=== PATIENT | female | born 1975 | race African-American/Black ===

== ENCOUNTER 2018-02-18 23:04 | Emergency (ER) | payer SELFPAY ==
[~2018-02-18] VITALS: Ht 165.1 cm; Wt 118.1 kg
[2018-02-18] MEDS ORDERED: ONDANSETRON HCL 4MG/2ML VIAL IV STA (23:26)
[2018-02-18] MEDS ORDERED: SODIUM CHLORIDE 0.9% 1,000 ML IV ONE (23:26)
[2018-02-18] MEDS ORDERED: LORAZEPAM 2MG/ML CPJ IV ONE (23:30)
[2018-02-18 23:44] LABS: BASOPHILS % 1.3 % (0.0-2.0); EOSINOPHILS % 1.5 % (0.0-5.0); HEMATOCRIT. 37.5 % (36.0-48.0); HEMOGLOBIN. 12.1 g/dL (12.0-16.0); LYMPHOCYTES % 43.9 % (20.0-50.0); MEAN CORPUSCULAR HEMOGLOBIN 25.9 pg (28.0-32.0); MEAN PLATELET VOLUME 8.6 fl (7.4-10.4); MONOCYTES % 7.1 % (2.0-8.0); NEUTROPHILS % 46.2 % (40.0-76.0); PLATELET 214 x1000/uL (130-400); RED BLOOD CELL COUNT 4.68 mill/uL (4.2-5.4); RED CELL DISTRIBUTION WIDTH 17.8 % (11.6-14.6)
[2018-02-18 23:50] LABS: CHLORIDE 92 mEq/L (98-107)
[2018-02-18 23:54] LABS: INR 1.1; PROTHROMBIN TIME 11.5 sec (9.4-11.6)
[2018-02-18 23:56] LABS: ETHANOL BLOOD 239 mg/dL
[2018-02-19] LABS: CREATINE KINASE 239 IU/L (26-192)
[2018-02-19] MEDS ORDERED: POTASSIUM CHLORIDE 20MEQ TABLET SR PO ONE (01:00)
[2018-02-19] MEDS ORDERED: SODIUM CHLORIDE 0.9% 1,000 ML IV ONE (01:07)
[2018-02-19] MEDS ORDERED: INSULIN REGULAR (HUMULIN R) 300UNITS/3ML SUBCUT ONE (01:15)
[2018-02-19] MEDS: POTASSIUM CHLORIDE 20MEQ TABLET SR PO NR ×2 (02:38→03:19)
[2018-02-19 06:32] VITALS: BP 159/99
== END 2018-02-19 06:50 | disposition home or self-care (01) ==
LOC: ER 23:04
DX: R07.2 Precordial pain (principal); F41.9 Anxiety disorder, unspecified; I10 Essential (primary) hypertension
CPT/HCPCS: 36415; 71045; 80053; 82550; 82962; 83880; 84443; 84484; 85025; 85610; 93005; 96372; 96374; 96375; 99285; G0482; J1815; J7030; Z7610; J2060; J2405

== ENCOUNTER 2020-12-20 15:51 | Emergency (ER) | payer OTHER ==
[~2020-12-20] VITALS: Ht 170.2 cm; Wt 112.0 kg
[2020-12-20] MEDS ORDERED: ONDANSETRON 4MG ODT PO ONE (16:45)
[2020-12-20] MEDS ORDERED: MECLIZINE 25MG TABLET PO ONE (17:15)
[2020-12-20 17:16] LABS: BASOPHILS % 0.2 % (0.0-2.0); EOSINOPHILS % 0.1 % (0.0-5.0); HEMATOCRIT. 36.4 % (36.0-48.0); HEMOGLOBIN. 12.1 g/dL (12.0-16.0); LYMPHOCYTES % 18.9 % (20.0-50.0); MEAN CORPUSCULAR HEMOGLOBIN 33.9 pg (28.0-32.0); MEAN CORPUSCULAR VOLUME 102.1 fL (81.0-99.0); MEAN PLATELET VOLUME 8.3 fl (7.4-10.4); MONOCYTES % 6.8 % (2.0-8.0); PLATELET 283 x1000/uL (130-400); RED BLOOD CELL COUNT 3.56 mill/uL (4.2-5.4); RED CELL DISTRIBUTION WIDTH 15.7 % (11.6-14.6)
[2020-12-20 17:20] LABS: CHLORIDE 102 mEq/L (98-107)
[2020-12-20 17:23] LABS: PROTHROMBIN TIME 11.2 sec (9.6-11.0)
[2020-12-20 17:25] LABS: ETHANOL BLOOD 72 mg/dL; HCG SCREEN NEGATIVE
[2020-12-20] MEDS ORDERED: SODIUM CHLORIDE 0.9% 1,000 ML IV ONE (18:30)
[2020-12-20 20:25] VITALS: BP 132/88
== END 2020-12-20 21:05 | disposition short-term general hospital (02) ==
LOC: ER 15:51
DX: R55 Syncope and collapse (principal); F41.9 Anxiety disorder, unspecified; G62.9 Polyneuropathy, unspecified; I10 Essential (primary) hypertension; E11.9 Type 2 diabetes mellitus without complications; F10.129 Alcohol abuse with intoxication, unspecified; Y90.3 Blood alcohol level of 60-79 mg/100 ml
CPT/HCPCS: 36415; 70450; 80053; 80320; 83690; 84484; 84703; 85025; 85610; 93005; 96360; 99285; J7030; J8597; Q0162; Z7610; G0480

== ENCOUNTER 2021-11-27 05:15 | Emergency (ER) | payer OTHER ==
[~2021-11-27] VITALS: Ht 165.1 cm; Wt 100.0 kg
[2021-11-27 05:45] LABS: BASOPHILS % 0.2 % (0.0-2.0); EOSINOPHILS % 0.4 % (0.0-5.0); HEMATOCRIT. 23.3 % (36.0-48.0); HEMOGLOBIN. 7.7 g/dL (12.0-16.0); LYMPHOCYTES % 39.8 % (20.0-50.0); MEAN CORPUSCULAR HEMOGLOBIN 30.8 pg (28.0-32.0); MEAN CORPUSCULAR VOLUME 92.6 fL (81.0-99.0); MEAN PLATELET VOLUME 8.4 fl (7.4-10.4); NEUTROPHILS % 53.6 % (40.0-76.0); PLATELET 166 x1000/uL (130-400); RED BLOOD CELL COUNT 2.52 mill/uL (4.2-5.4)
[2021-11-27 05:53] LABS: CHLORIDE 108 mEq/L (98-107)
[2021-11-27 06:01] LABS: B-HCG QUANTITATIVE < 1 mIU/mL (<3)
[2021-11-27 06:09] LABS: HCG SCREEN NEGATIVE
[2021-11-27] MEDS ORDERED: ONDANSETRON HCL 4MG/2ML INJ IV ONE (06:30)
[2021-11-27] MEDS ORDERED: POTASSIUM CHLORIDE 20MEQ TABLET SR PO NR (07:45)
[2021-11-27 12:00] VITALS: BP 145/87
== END 2021-11-27 12:48 | disposition short-term general hospital (02) ==
LOC: ER 05:15
DX: D64.9 Anemia, unspecified (principal); R07.89 Other chest pain; N93.8 Other specified abnormal uterine and vaginal bleeding; E11.9 Type 2 diabetes mellitus without complications; I10 Essential (primary) hypertension; Z20.822 Contact with and (suspected) exposure to COVID-19
CPT/HCPCS: 36415; 71045; 76830; 76856; 80053; 82962; 83880; 84484; 84702; 84703; 85025; 86850; 86900; 86901; 86920; 87426; 93005; 96374; 99291; J2405; P9016

== ENCOUNTER 2022-03-02 00:13 | Emergency (ER) | payer OTHER ==
[~2022-03-02] VITALS: Ht 167.6 cm; Wt 103.0 kg
[2022-03-02 00:33] VITALS: BP 102/67
[2022-03-02 01:18] LABS: BASOPHILS % 0.3 % (0.0-2.0); EOSINOPHILS % 1.2 % (0.0-5.0); HEMATOCRIT. 33.4 % (36.0-48.0); HEMOGLOBIN. 10.5 g/dL (12.0-16.0); LYMPHOCYTES % 37.3 % (20.0-50.0); MEAN CORPUSCULAR HEMOGLOBIN 26.9 pg (28.0-32.0); MEAN CORPUSCULAR VOLUME 85.9 fL (81.0-99.0); MEAN PLATELET VOLUME 7.8 fl (7.4-10.4); MONOCYTES % 9.6 % (2.0-8.0); NEUTROPHILS % 51.6 % (40.0-76.0); PLATELET 212 x1000/uL (130-400); RED BLOOD CELL COUNT 3.89 mill/uL (4.2-5.4); RED CELL DISTRIBUTION WIDTH 20.7 % (11.6-14.6)
[2022-03-02 01:26] LABS: CHLORIDE 112 mEq/L (98-107)
== END 2022-03-02 05:23 | disposition left against medical advice (07) ==
LOC: ER 00:13
DX: R42 Dizziness and giddiness (principal); I10 Essential (primary) hypertension; E11.9 Type 2 diabetes mellitus without complications; Z98.890 Other specified postprocedural states; Z53.21 Procedure and treatment not carried out due to patient leaving prior to being seen by health care provider
CPT/HCPCS: 36415; 71045; 80053; 83880; 84484; 85025; 85379; 93005; 93970; 99285

== ENCOUNTER 2022-10-28 18:26 | Emergency (ER) | payer OTHER ==
[~2022-10-28] VITALS: Ht 170.2 cm; Wt 107.0 kg
[2022-10-28] MEDS ORDERED: MORPHINE SULFATE 4 MG/ML CPJ (NOT FOR IM USE) IV ONE (19:00)
[2022-10-28] MEDS ORDERED: ASPIRIN 325MG TABLET PO ONE (19:00)
[2022-10-28] MEDS ORDERED: ONDANSETRON HCL 4MG/2ML INJ IV ONE (19:15)
[2022-10-28 19:23] LABS: BASOPHILS % 0.4 % (0.0-2.0); EOSINOPHILS % 0.1 % (0.0-5.0); HEMATOCRIT. 38.7 % (36.0-48.0); HEMOGLOBIN. 12.5 g/dL (12.0-16.0); MEAN CORPUSCULAR HEMOGLOBIN 28.9 pg (28.0-32.0); MEAN CORPUSCULAR VOLUME 89.5 fL (81.0-99.0); NEUTROPHILS % 82.5 % (40.0-76.0); PLATELET 136 x1000/uL (130-400); RED BLOOD CELL COUNT 4.32 mill/uL (4.2-5.4); RED CELL DISTRIBUTION WIDTH 19.7 % (11.6-14.6)
[2022-10-28 19:31] LABS: PROTHROMBIN TIME 10.8 sec (9.6-11.0)
[2022-10-28 19:35] LABS: CHLORIDE 106 mEq/L (98-107); HCG SCREEN NEGATIVE
[2022-10-28] MEDS ORDERED: LORAZEPAM 2MG/ML CPJ IV ONE (20:30)
[2022-10-28] MEDS ORDERED: NITROGLYCERIN 0.4MG TABLET SL SL PRN (20:30)
[2022-10-29 01:25] VITALS: BP 148/86
== END 2022-10-29 02:41 | disposition short-term general hospital (02) ==
LOC: ER 18:26 → EDBEDREQ 20:31 → CANBEDREQ 22:21 → ER 10-29 02:41
DX: F10.239 Alcohol dependence with withdrawal, unspecified (principal); Y90.0 Blood alcohol level of less than 20 mg/100 ml; E11.9 Type 2 diabetes mellitus without complications; E78.00 Pure hypercholesterolemia, unspecified; I10 Essential (primary) hypertension; Z20.822 Contact with and (suspected) exposure to COVID-19
CPT/HCPCS: 36415; 71045; 80053; 82962; 83880; 84484; 84703; 85025; 85610; 87426; 93005; 96374; 96375; 99285; C9803; J2060; J2270; J2405; Z7610

== ENCOUNTER 2023-08-26 00:42 | Emergency (ER) | payer OTHER ==
[~2023-08-26] VITALS: Ht 167.6 cm; Wt 113.0 kg
[2023-08-26 00:43] VITALS: O2SAT 97
[2023-08-26 01:58] LABS: BASOPHILS % 0.4 % (0.0-2.0); DIFFERENTIAL COMMENT 0; EOSINOPHILS % 0.6 % (0.0-5.0); HEMATOCRIT. 38.5 % (36.0-48.0); HEMOGLOBIN. 12.6 g/dL (12.0-16.0); LYMPHOCYTES % 33.2 % (20.0-50.0); MEAN CORPUSCULAR HEMOGLOBIN 26.2 pg (28.0-32.0); MEAN CORPUSCULAR HGB CONC 32.9 g/dL (31.0-37.0); MEAN CORPUSCULAR VOLUME 79.8 fL (81.0-99.0); MEAN PLATELET VOLUME 8.4 fl (7.4-10.4); MONOCYTES % 4.7 % (2.0-8.0); NEUTROPHILS % 61.1 % (40.0-76.0); PLATELET 139 x1000/uL (130-400); RED BLOOD CELL COUNT 4.82 mill/uL (4.2-5.4); WHITE BLOOD COUNT 7.6 x1000/uL (4.5-11.0)
[2023-08-26 02:09] LABS: PARTIAL THROMBOPLASTIN TIME 26.2 sec (23.4-31.0); PROTHROMBIN TIME 10.7 sec (9.6-11.0)
[2023-08-26 02:14] LABS: HCG SCREEN NEGATIVE
[2023-08-26 02:26] LABS: ALANINE AMINOTRANSFERASE 13 IU/L (10-49); ALBUMIN 4.1 g/dL (3.2-4.8); ASPARTATE AMINOTRANSFERASE 29 IU/L (<34); BILIRUBIN TOTAL 0.4 mg/dL (0.1-1.0); CALCIUM 8.5 mg/dL (8.7-10.4); CARBON DIOXIDE 21 mEq/L (21-32); CHLORIDE 106 mEq/L (98-107); CREATININE 0.7 mg/dL (0.6-1.0); ETHANOL BLOOD 307 mg/dL (<10); GLUCOSE 82 mg/dL (70-105); POTASSIUM 3.5 mEq/L (3.5-5.1); PROTEIN TOTAL 8.6 g/dL (6.0-8.3); SODIUM 140 mEq/L (136-145); UREA NITROGEN BLOOD 11 mg/dL (9-23)
[2023-08-26 02:31] LABS: TROPONIN I HIGH SENSITIVITY < 4 ng/L (3.0-34)
[2023-08-26 04:32] LABS: TROPONIN I HIGH SENSITIVITY < 4 ng/L (3.0-34)
[2023-08-26 05:32] VITALS: BP 136/97; PULSE 96; RESP 16; TEMP 98.1
== END 2023-08-26 06:44 | disposition short-term general hospital (02) ==
LOC: ER 00:42
DX: R07.89 Other chest pain (principal); F10.129 Alcohol abuse with intoxication, unspecified; E11.9 Type 2 diabetes mellitus without complications; E78.00 Pure hypercholesterolemia, unspecified; I10 Essential (primary) hypertension; Y90.8 Blood alcohol level of 240 mg/100 ml or more
CPT/HCPCS: 36415; 71045; 80053; 80320; 83880; 84484; 84703; 85025; 93005; 99285; G0480

== ENCOUNTER 2024-09-29 23:56 | Emergency (ER) | payer OTHER ==
[~2024-09-29] VITALS: Ht 170.2 cm; Wt 109.0 kg
[2024-09-30] VITALS: TEMP 37.1; O2SAT 100
[2024-09-30 00:57] LABS: BASOPHILS % 0.5 % (0.0-2.0); EOSINOPHILS % 0.1 % (0.0-5.0); HEMATOCRIT. 38.9 % (36.0-48.0); HEMOGLOBIN. 12.6 g/dL (12.0-16.0); LYMPHOCYTES % 21.8 % (20.0-50.0); MEAN CORPUSCULAR HEMOGLOBIN 26.9 pg (28.0-32.0); MEAN CORPUSCULAR HGB CONC 32.5 g/dL (31.0-37.0); MEAN CORPUSCULAR VOLUME 82.8 fL (81.0-99.0); MEAN PLATELET VOLUME 8.6 fl (7.4-10.4); MONOCYTES % 1.8 % (2.0-8.0); NEUTROPHILS % 75.8 % (40.0-76.0); PLATELET 176 x1000/uL (130-400); RED CELL DISTRIBUTION WIDTH 15.7 % (11.6-14.6); WHITE BLOOD COUNT 4.7 x1000/uL (4.5-11.0)
[2024-09-30 01:08] LABS: CHLORIDE 105 mEq/L (98-107); SODIUM 140 mEq/L (136-145)
[2024-09-30 01:09] LABS: CALCIUM 8.6 mg/dL (8.7-10.4); CARBON DIOXIDE 24 mEq/L (21-32)
[2024-09-30 01:10] LABS: HCG SCREEN NEGATIVE
[2024-09-30 01:14] LABS: CREATININE 1.1 mg/dL (0.6-1.0); ETHANOL BLOOD 288 mg/dL (<10); GLUCOSE 132 mg/dL (70-105); UREA NITROGEN BLOOD 22 mg/dL (9-23)
[2024-09-30 01:16] LABS: PARTIAL THROMBOPLASTIN TIME 25.4 sec (23.4-31.0); PROTHROMBIN TIME 10.3 sec (9.6-11.0)
[2024-09-30 01:17] LABS: CLARITY URINE CLEAR (CLEAR); COLOR URINE YELLOW (YELLOW); GLUCOSE URINE NEGATIVE (NEGATIVE); KETONES URINE NEGATIVE (NEGATIVE); LEUKOCYTE ESTERASE URINE 1+ (NEGATIVE); NITRITE URINE NEGATIVE (NEGATIVE); OCCULT BLOOD URINE NEGATIVE (NEGATIVE); PH URINE 6.5 (4.5-8.0); PROTEIN URINE NEGATIVE (NEGATIVE); SPECIFIC GRAVITY URINE 1.015 (1.005-1.030)
[2024-09-30 01:37] LABS: *AMPHETAMINES SCREEN URINE NEGATIVE (NEGATIVE); *BENZODIAZEPINES SCREEN URINE NEGATIVE (NEGATIVE)
[2024-09-30 01:38] LABS: *BARBITURATES SCREEN URINE NEGATIVE (NEGATIVE); *COCAINE SCREEN URINE NEGATIVE (NEGATIVE); CANNABINOID URINE SCREEN PRESUMPTIVE POSITIVE (NEGATIVE); ECSTASY MDMA SCREEN URINE NEGATIVE (NEGATIVE); METHADONE URINE SCREEN NEGATIVE (NEGATIVE); OPIATES URINE SCREEN NEGATIVE (NEGATIVE); PHENCYCLIDINE URINE SCREEN NEGATIVE (NEGATIVE)
[2024-09-30 01:38] LABS: TROPONIN I HIGH SENSITIVITY < 4 ng/L (3.0-34)
[2024-09-30] MEDS: SODIUM CHLORIDE 0.9% 1,000 ML IV ONE (03:08)
[2024-09-30 03:20] LABS: SQUAMOUS EPITHELIAL CELL URINE 1+ /lpf (RARE/1+); WBC URINE 0-2 /hpf (0-2)
[2024-09-30 03:21] LABS: BACTERIA URINE NONE SEEN
[2024-09-30] MEDS ORDERED: ACET-2708 MT (05:24)
[2024-09-30] MEDS: ACETAMINOPHEN 325MG TABLET PO ONE (05:44)
[2024-09-30] MEDS: LIDOCAINE 5% PATCH TOP ONE (05:45)
[2024-09-30] MEDS ORDERED: BISO5TAB13 PO (05:55)
[2024-09-30] MEDS ORDERED: FLUO40CA8 PO (05:55)
[2024-09-30] MEDS ORDERED: LISI40TA13 MT (05:55)
[2024-09-30 06:07] VITALS: BP 168/104; PULSE 73; RESP 18; O2SAT 98
== END 2024-09-30 06:08 | disposition home or self-care (01) ==
LOC: ER 09-30 00:14
DX: R07.89 Other chest pain (principal); F10.129 Alcohol abuse with intoxication, unspecified; E11.9 Type 2 diabetes mellitus without complications; E78.00 Pure hypercholesterolemia, unspecified; F12.10 Cannabis abuse, uncomplicated; I10 Essential (primary) hypertension; Z79.899 Other long term (current) drug therapy; Y90.9 Presence of alcohol in blood, level not specified
CPT/HCPCS: 80305; 80048; 81003; 80320; 84703; 83880; 83690; 85025; 85610; 85730; 84484; 36415; 71045; 93005; 96360; 96361; 99285; J7030; G0480

== ENCOUNTER 2024-11-13 15:38 | Inpatient (IN) | payer OTHER, MEDICAID ==
[~2024-11-13] VITALS: Ht 170.2 cm; Wt 112.9 kg
[~2024-11-13 15:38] MED LIST: ACET-2708 MT; BISO5TAB13 PO; FLUO40CA8 PO; LISI40TA13 MT
[2024-11-13 15:43] VITALS: O2SAT 98
[2024-11-13] MEDS ORDERED: DIAZEPAM 5 MG/ML 2ML SYR IV ONE (16:00)
[2024-11-13 16:39] LABS: BASOPHILS % 0.6 % (0.0-2.0); EOSINOPHILS % 0.1 % (0.0-5.0); HEMATOCRIT. 38.3 % (36.0-48.0); HEMOGLOBIN. 12.6 g/dL (12.0-16.0); LYMPHOCYTES % 22.3 % (20.0-50.0); MEAN PLATELET VOLUME 8.6 fl (7.4-10.4); MONOCYTES % 4.1 % (2.0-8.0); NEUTROPHILS % 72.9 % (40.0-76.0); PLATELET 141 x1000/uL (130-400); RED BLOOD CELL COUNT 4.51 mill/uL (4.2-5.4); RED CELL DISTRIBUTION WIDTH 18.2 % (11.6-14.6); WHITE BLOOD COUNT 6.6 x1000/uL (4.5-11.0)
[2024-11-13] MEDS: FOLIC ACID 1 MG, THIAMINE HCL 100 MG, MVI, ADULT NO.1 10 ML in DEXTROSE 5% WATER 1,000 ML IV ONE (16:39)
[2024-11-13] MEDS: DIAZEPAM 5 MG/ML 2ML SYR IV SCH (16:39)
[2024-11-13 16:57] LABS: HCG SCREEN NEGATIVE
[2024-11-13 17:05] LABS: CHLORIDE 104 mEq/L (98-107); POTASSIUM 3.6 mEq/L (3.5-5.1); SODIUM 140 mEq/L (136-145)
[2024-11-13 17:06] LABS: CALCIUM 9.5 mg/dL (8.7-10.4); CARBON DIOXIDE 18 mEq/L (21-32)
[2024-11-13 17:11] LABS: CREATININE 0.9 mg/dL (0.6-1.0); ETHANOL BLOOD < 10 mg/dL (<10); GLUCOSE 183 mg/dL (70-105); UREA NITROGEN BLOOD 21 mg/dL (9-23)
[2024-11-13 17:13] LABS: ALANINE AMINOTRANSFERASE 38 IU/L (10-49); ALBUMIN 4.2 g/dL (3.2-4.8); ASPARTATE AMINOTRANSFERASE 104 IU/L (<34); BILIRUBIN DIRECT 0.3 mg/dL (<=3.0); BILIRUBIN TOTAL 0.9 mg/dL (0.1-1.0); PROTEIN TOTAL 8.4 g/dL (6.0-8.3); TROPONIN I HIGH SENSITIVITY < 4 ng/L (3.0-34)
[2024-11-13] MEDS: MAGNESIUM 2 G PREMIX 50 ML IV ONE (18:29)
[2024-11-13] MEDS: DIAZEPAM 5 MG/ML 2ML SYR IV ONE (18:38)
[2024-11-13] MEDS: ONDANSETRON HCL 4MG/2ML INJ IV ONE (21:01)
[2024-11-13] MEDS ORDERED: NALOXONE HCL 0.4MG/ML VIAL IV PRN (21:30)
[2024-11-13] MEDS: HYDRALAZINE 20MG/ML VIAL IV PRN (21:34)
[2024-11-13] MEDS: HYDROCODONE/ACETAMINOPHEN 10/325MG TABLET PO PRN (21:34)
[2024-11-13] MEDS: SODIUM CHLORIDE 0.9% 1,000 ML IV ONE (21:59)
[2024-11-13 23:21] VITALS: BP 170/105; PULSE 123; RESP 22; TEMP 36.1; O2SAT 100
[2024-11-13 23:30] VITALS: BP 170/105; PULSE 110; RESP 20; TEMP 36.1
[2024-11-13] MEDS ORDERED: MAGNESIUM/ALUMINUM HYDROXIDE/SIMETHICONE 30ML UDC PO PRN (23:30)
[2024-11-13] MEDS ORDERED: ACETAMINOPHEN 325MG TABLET PO PRN ×2 (23:30)
[2024-11-13] MEDS: LORAZEPAM 2MG/ML UD SYRINGE IV PRN (23:51)
[2024-11-13] MEDS: LISINOPRIL 40MG TABLET PO SCH (23:51)
[2024-11-13] MEDS: ONDANSETRON HCL 4MG/2ML INJ IV PRN (23:53)
[2024-11-14] VITALS (7 sets, daily range): BP systolic 146–169; BP diastolic 82–104; PULSE 112–127; RESP 20–22; TEMP 36–36.6; O2SAT 95–100
[2024-11-14] MEDS ORDERED: ATOR10TA69 MT (02:33)
[2024-11-14] MEDS ORDERED: MAGN400T26 MT (02:33)
[2024-11-14] MEDS ORDERED: HYDR50TA54 MT (02:33)
[2024-11-14] MEDS ORDERED: OMEP40CA20 MT (02:33)
[2024-11-14] MEDS ORDERED: ALPR-339 MT (02:33)
[2024-11-14] MEDS ORDERED: PREG100C MT (02:33)
[2024-11-14] MEDS ORDERED: IBUP-2029 MT (02:33)
[2024-11-14] MEDS: HYDROXYZINE 25MG TABLET PO PRN (04:25)
[2024-11-14] MEDS: LORAZEPAM 2MG/ML UD SYRINGE IV NR (04:45)
[2024-11-14] MEDS: DIPHENHYDRAMINE 50MG/ML VIAL IV NR (04:46)
[2024-11-14 06:47] LABS: CARBON DIOXIDE 23 mEq/L (21-32); CHLORIDE 103 mEq/L (98-107); SODIUM 137 mEq/L (136-145)
[2024-11-14 06:48] LABS: CALCIUM 9.2 mg/dL (8.7-10.4)
[2024-11-14 06:52] LABS: CREATININE 0.7 mg/dL (0.6-1.0); GLUCOSE 120 mg/dL (70-105)
[2024-11-14 06:53] LABS: UREA NITROGEN BLOOD 18 mg/dL (9-23)
[2024-11-14 06:54] LABS: ALANINE AMINOTRANSFERASE 32 IU/L (10-49); ALBUMIN 4.1 g/dL (3.2-4.8); ASPARTATE AMINOTRANSFERASE 85 IU/L (<34)
[2024-11-14 06:55] LABS: BILIRUBIN TOTAL 1.1 mg/dL (0.1-1.0); PHOSPHORUS 1.7 mg/dL (2.5-4.9); PROTEIN TOTAL 8.3 g/dL (6.0-8.3); T4 FREE 0.92 ng/dL (0.89-1.76)
[2024-11-14 06:56] LABS: BASOPHILS % 0.2 % (0.0-2.0); EOSINOPHILS % 0.1 % (0.0-5.0); HEMATOCRIT. 37.8 % (36.0-48.0); HEMOGLOBIN. 12.4 g/dL (12.0-16.0); LYMPHOCYTES % 19.9 % (20.0-50.0); MEAN CORPUSCULAR HEMOGLOBIN 27.8 pg (28.0-32.0); MEAN CORPUSCULAR HGB CONC 32.8 g/dL (31.0-37.0); MEAN CORPUSCULAR VOLUME 84.6 fL (81.0-99.0); MEAN PLATELET VOLUME 9.9 fl (7.4-10.4); NEUTROPHILS % 70.8 % (40.0-76.0); PLATELET 136 x1000/uL (130-400); RED BLOOD CELL COUNT 4.46 mill/uL (4.2-5.4); RED CELL DISTRIBUTION WIDTH 17.9 % (11.6-14.6); THYROID STIMULATING HORMONE 1.32 uIU/mL (0.55-4.78); WHITE BLOOD COUNT 6.7 x1000/uL (4.5-11.0)
[2024-11-14 06:59] LABS: FOLIC ACID (FOLATE) SERUM 15.73 ng/mL (>5.38); VITAMIN B12 SERUM 624 pg/mL (211-911)
[2024-11-14 07:03] LABS: CLARITY URINE CLEAR (CLEAR); COLOR URINE DARK YELLOW (YELLOW); GLUCOSE URINE NEGATIVE (NEGATIVE); KETONES URINE 3+ (NEGATIVE); LEUKOCYTE ESTERASE URINE TRACE (NEGATIVE); NITRITE URINE NEGATIVE (NEGATIVE); OCCULT BLOOD URINE NEGATIVE (NEGATIVE); PH URINE 6.5 (4.5-8.0); PROTEIN URINE 1+ (NEGATIVE); SPECIFIC GRAVITY URINE 1.032 (1.005-1.030)
[2024-11-14 07:09] LABS: HEPATITIS B SURFACE ANTIGEN NEGATIVE (Negative)
[2024-11-14 07:19] LABS: SQUAMOUS EPITHELIAL CELL URINE 1+ /lpf (RARE/1+)
[2024-11-14 07:21] LABS: BACTERIA URINE TRACE; RBC URINE 0-2 /hpf (0-2); WBC URINE 0-2 /hpf (0-2)
[2024-11-14 07:30] LABS: HEPATITIS C AB NON REACTIVE (Neg) (Negative)
[2024-11-14 07:37] LABS: *AMPHETAMINES SCREEN URINE NEGATIVE (NEGATIVE); *BARBITURATES SCREEN URINE NEGATIVE (NEGATIVE); *BENZODIAZEPINES SCREEN URINE PRESUMPTIVE POSITIVE (NEGATIVE)
[2024-11-14 07:38] LABS: *COCAINE SCREEN URINE NEGATIVE (NEGATIVE); CANNABINOID URINE SCREEN PRESUMPTIVE POSITIVE (NEGATIVE); ECSTASY MDMA SCREEN URINE NEGATIVE (NEGATIVE); METHADONE URINE SCREEN NEGATIVE (NEGATIVE); OPIATES URINE SCREEN PRESUMPTIVE POSITIVE (NEGATIVE); PHENCYCLIDINE URINE SCREEN NEGATIVE (NEGATIVE)
[2024-11-14] MEDS ORDERED: LABETALOL HCL 100MG TABLET PO SCH (09:00)
[2024-11-14] MEDS: POTASSIUM PHOSPHATE 30 MMOL in DEXT 5% WATER 490 ML IV NR (11:16)
[2024-11-14] MEDS: MAGNESIUM 4 G PREMIX 100 ML IV ONE (11:17)
[2024-11-14] MEDS: FOLIC ACID 1MG TABLET PO SCH (11:18)
[2024-11-14] MEDS: THIAMINE HCL 100MG TABLET PO SCH (11:19)
[2024-11-14] MEDS: ENOXAPARIN 30MG/0.3ML SYR SUBCUT SCH (11:20)
[2024-11-14] MEDS: MULTIVITAMINS,THER W-MINERALS TABLET PO SCH (11:21)
[2024-11-14] MEDS: CHLORDIAZEPOXIDE 25MG CAPSULE PO SCH (11:31)
[2024-11-14 13:18] LABS: TROPONIN I HIGH SENSITIVITY 18 ng/L (3.0-34)
[2024-11-14] MEDS ORDERED: MVI, ADULT NO.1 10 ML, FOLIC ACID 1 MG, THIAMINE HCL 100 MG in SODIUM CHLORIDE 0.9% 1,0... IV SCH (15:00)
[2024-11-14] MEDS ORDERED: DOCU-422 PO (15:32)
[2024-11-14] MEDS ORDERED: AZEL137S10 (15:32)
[2024-11-14] MEDS ORDERED: FLUO40CA49 PO (15:32)
[2024-11-14] MEDS ORDERED: LIDO700A30 TP (15:32)
[2024-11-14] MEDS ORDERED: PREG100C55 PO (15:33)
[2024-11-14] MEDS: MAGNESIUM 2 G PREMIX 50 ML IV NR (16:06)
[2024-11-14] MEDS: MVI, ADULT NO.1 10 ML, FOLIC ACID 1 MG, THIAMINE HCL 100 MG in SODIUM CHLORIDE 0.9% 1,0... IV ONE (16:06)
[2024-11-14] MEDS: METOPROLOL TARTRATE 25MG TABLET PO SCH (16:17)
[2024-11-14] MEDS ORDERED: HYDROXYZINE 25MG TABLET PO PRN (17:00)
[2024-11-14] MEDS ORDERED: SODIUM CHLORIDE 0.9% 1,000 ML IV SCH (17:00)
[2024-11-14] MEDS ORDERED: NYSTATIN POWDER 15GM TOP SCH (17:00)
[2024-11-14] MEDS ORDERED: AZELASTINE HCL 137MCG/SPRAY NASAL PUMP BOTHNSTRLS SCH (21:00)
[2024-11-14] MEDS ORDERED: PREGABALIN 75MG CAPSULE PO SCH (21:00)
[2024-11-15] MEDS ORDERED: PANTOPRAZOLE 40MG DR TABLET PO SCH (07:20)
[2024-11-15] MEDS ORDERED: ATORVASTATIN CALCIUM 10MG TABLET PO SCH (09:00)
[2024-11-15] MEDS ORDERED: FLUOXETINE HCL 20MG CAPSULE PO SCH (09:00)
[2024-11-15] MEDS ORDERED: MAGNESIUM OXIDE 400MG TABLET PO SCH (09:00)
[2024-11-15] MEDS ORDERED: DOCUSATE SODIUM 100MG CAPSULE PO SCH (09:00)
[2024-11-15] MEDS ORDERED: LIDOCAINE 5% PATCH TOP SCH (09:00)
== END 2024-11-14 18:00 | disposition left against medical advice (07) | DRG 304 ==
LOC: ER 15:38 → 6WST 18:14
PROVIDERS: ADMIT Family Medicine Adult Medicine; ATTEND Family Medicine Adult Medicine
DX: I16.0 Hypertensive urgency (principal); K85.90 Acute pancreatitis without necrosis or infection, unspecified; F10.139 Alcohol abuse with withdrawal, unspecified; I24.9 Acute ischemic heart disease, unspecified; E87.6 Hypokalemia; E83.42 Hypomagnesemia; E83.39 Other disorders of phosphorus metabolism; L30.4 Erythema intertrigo; I10 Essential (primary) hypertension; Y90.0 Blood alcohol level of less than 20 mg/100 ml; E11.40 Type 2 diabetes mellitus with diabetic neuropathy, unspecified; E65 Localized adiposity; E78.00 Pure hypercholesterolemia, unspecified; F41.9 Anxiety disorder, unspecified; Z79.899 Other long term (current) drug therapy; Z90.710 Acquired absence of both cervix and uterus
CPT/HCPCS: 36415; 71045; 80048; 80053; 80076; 80305; 80320; 81003; 82607; 82746; 82962; 83735; 83880; 84100; 84425; 84439; 84443; 84484; 84703; 85025; 86705; 87340; 93005; 93306; 93970; 99291; J0360; J1200; J1650; J2060; J2405; J3411; J3475; J3490; J7030; J7060; J7070; G0480

== ENCOUNTER 2025-05-11 19:51 | Inpatient (IN) | payer OTHER, MEDICAID ==
[~2025-05-11] VITALS: Ht 165.1 cm; Wt 121.6 kg
[~2025-05-11 19:51] MED LIST changes: -ACET-2708 MT; +ATOR10TA69 MT; +AZEL137S10; -BISO5TAB13 PO; +DOCU-422 PO; +FLUO40CA49 PO; -FLUO40CA8 PO; +HYDR50TA54 MT; +IBUP-1455 MT; +LIDO700A30 TP; -LISI40TA13 MT; +LISI40TA21 MT; +MAGN400T26 MT; +OMEP40CA20 MT; +PREG100C55 PO
[2025-05-11 19:58] VITALS: O2SAT 100
[2025-05-11] MEDS ORDERED: CHLORDIAZEPOXIDE 25MG CAPSULE PO ONE (20:30)
[2025-05-11 20:53] LABS: BASOPHILS % 0.5 % (0.0-2.0); EOSINOPHILS % 0.2 % (0.0-5.0); HEMATOCRIT. 43.3 % (36.0-48.0); HEMOGLOBIN. 14.0 g/dL (12.0-16.0); LYMPHOCYTES % 22.1 % (20.0-50.0); MEAN PLATELET VOLUME 9.0 fl (7.4-10.4); MONOCYTES % 4.7 % (2.0-8.0); NEUTROPHILS % 72.5 % (40.0-76.0); PLATELET 133 x1000/uL (130-400); RED BLOOD CELL COUNT 5.22 mill/uL (4.2-5.4); RED CELL DISTRIBUTION WIDTH 16.4 % (11.6-14.6)
[2025-05-11 21:03] LABS: CREATININE 1.1 mg/dL (0.6-1.0)
[2025-05-11 21:04] LABS: TROPONIN I HIGH SENSITIVITY < 4 ng/L (3.0-34); UREA NITROGEN BLOOD 13 mg/dL (9-23)
[2025-05-11 21:05] LABS: ASPARTATE AMINOTRANSFERASE 72 IU/L (<34)
[2025-05-11 21:06] LABS: BILIRUBIN DIRECT 0.4 mg/dL (<=3.0); BILIRUBIN TOTAL 1.3 mg/dL (0.1-1.0); PROTEIN TOTAL 8.6 g/dL (6.0-8.3)
[2025-05-11] MEDS: ONDANSETRON HCL 4MG/2ML INJ IV ONE (21:13)
[2025-05-11] MEDS: SODIUM CHLORIDE 0.9% 1,000 ML IV ONE (21:13)
[2025-05-11 21:15] LABS: HCG SCREEN NEGATIVE
[2025-05-11] MEDS ORDERED: MAGNESIUM GLUCONATE 500MG TABLET PO SCH (22:00)
[2025-05-11] MEDS: METOCLOPRAMIDE HCL 10MG/2ML VIAL IV ONE (22:35)
[2025-05-11] MEDS: LORAZEPAM 2MG/ML UD SYRINGE IV NR (22:35)
[2025-05-11] MEDS: CHLORDIAZEPOXIDE 25MG CAPSULE PO SCH (23:36)
[2025-05-11] MEDS: MAGNESIUM GLUCONATE 500MG TABLET PO SCH (23:36)
[2025-05-11] MEDS: FOLIC ACID 1 MG, THIAMINE HCL 100 MG, MVI, ADULT NO.1 10 ML in DEXTROSE 5% WATER 1,000 ML IV ONE (23:37)
[2025-05-12] VITALS (10 sets, daily range): BP systolic 128–163; BP diastolic 92–112; PULSE 75–100; RESP 13–28; TEMP 36.4–37.7; O2SAT 92–100
[2025-05-12] MEDS: DILTIAZEM HCL 5MG/ML 5ML VIAL IV ONE (00:50)
[2025-05-12] MEDS: DILTIAZEM HCL 90MG TABLET PO ONE (01:49)
[2025-05-12] MEDS ORDERED: NALOXONE HCL 0.4MG/ML VIAL IV PRN (03:15)
[2025-05-12] MEDS: HYDROCODONE/ACETAMINOPHEN 5/325MG TABLET PO PRN (03:18)
[2025-05-12] MEDS ORDERED: HYDROCODONE/ACETAMINOPHEN 5/325MG TABLET PO PRN (05:30)
[2025-05-12] MEDS ORDERED: CLONIDINE 0.1MG TABLET PO PRN (05:30)
[2025-05-12] MEDS ORDERED: DEXTROSE 50% WATER 50ML SYRINGE IV PRN ×2 (06:30→15:15)
[2025-05-12] MEDS: BLOOD SUGAR DIAGNOSTIC STRIP TEST SCH (07:30)
[2025-05-12] MEDS: INSULIN LISPRO 100 UNITS/ML SUBCUT SCH (08:00)
[2025-05-12] MEDS: FLUOXETINE HCL 20MG CAPSULE PO SCH (08:45)
[2025-05-12] MEDS: APIXABAN 5 MG TABLET PO SCH (08:45)
[2025-05-12] MEDS: MAGNESIUM OXIDE 400MG TABLET PO SCH (08:46)
[2025-05-12] MEDS: PREGABALIN 50 MG CAPSULE PO SCH (08:46)
[2025-05-12] MEDS: METOPROLOL TARTRATE 50MG TABLET PO SCH (08:46)
[2025-05-12] MEDS: DIPHENHYDRAMINE 50MG CAPSULE PO PRN (08:47)
[2025-05-12] MEDS: LOSARTAN 50 MG TABLET PO SCH (08:47)
[2025-05-12] MEDS: DOCUSATE SODIUM 100MG CAPSULE PO SCH (08:47)
[2025-05-12] MEDS: PANTOPRAZOLE SODIUM 40 MG/VIAL IV SCH (08:47)
[2025-05-12] MEDS: AZELASTINE HCL 137MCG/SPRAY NASAL PUMP BOTHNSTRLS SCH (08:48)
[2025-05-12 12:10] LABS: LDL CHOLESTEROL 110.0 mg/dL (5-100); TRIGLYCERIDE 148.0 mg/dL (0-150)
[2025-05-12 12:45] LABS: HEPATITIS C AB NON REACTIVE (Neg) (Negative)
[2025-05-12] MEDS ORDERED: ONDANSETRON HCL 4MG/2ML INJ IV PRN (15:15)
[2025-05-12] MEDS ORDERED: ACETAMINOPHEN 325MG TABLET PO PRN (15:15)
[2025-05-12] MEDS ORDERED: ALLO100T PO (15:16)
[2025-05-12 16:55] LABS: CLARITY URINE CLOUDY (CLEAR); COLOR URINE DARK YELLOW (YELLOW); GLUCOSE URINE NEGATIVE (NEGATIVE); KETONES URINE 1+ (NEGATIVE); LEUKOCYTE ESTERASE URINE 2+ (NEGATIVE); NITRITE URINE NEGATIVE (NEGATIVE); OCCULT BLOOD URINE NEGATIVE (NEGATIVE); PH URINE 6.0 (4.5-8.0); PROTEIN URINE 2+ (NEGATIVE); SPECIFIC GRAVITY URINE 1.029 (1.005-1.030); UROBILINOGEN URINE 1.0 E.U./dL (0.2-1.0)
[2025-05-12 16:56] LABS: *AMPHETAMINES SCREEN URINE NEGATIVE (NEGATIVE); *BARBITURATES SCREEN URINE NEGATIVE (NEGATIVE); *BENZODIAZEPINES SCREEN URINE PRESUMPTIVE POSITIVE (NEGATIVE); *COCAINE SCREEN URINE NEGATIVE (NEGATIVE); CANNABINOID URINE SCREEN NEGATIVE (NEGATIVE); METHADONE URINE SCREEN NEGATIVE (NEGATIVE); OPIATES URINE SCREEN PRESUMPTIVE POSITIVE (NEGATIVE); PHENCYCLIDINE URINE SCREEN NEGATIVE (NEGATIVE)
[2025-05-12 16:57] LABS: ECSTASY MDMA SCREEN URINE NEGATIVE (NEGATIVE)
[2025-05-12] MEDS: MAGNESIUM 1 G PREMIX 100 ML IV NR (17:23)
[2025-05-12] MEDS ORDERED: BLOOD SUGAR DIAGNOSTIC STRIP TEST SCH (17:30)
[2025-05-12 17:51] LABS: BACTERIA URINE 1+; SQUAMOUS EPITHELIAL CELL URINE 2+ /lpf (RARE/1+); WBC URINE 25-50 /hpf (0-2)
[2025-05-12] MEDS ORDERED: INSULIN LISPRO 100 UNITS/ML SUBCUT SCH (18:00)
[2025-05-12 18:01] LABS: BASOPHILS % 0.5 % (0.0-2.0); EOSINOPHILS % 0.3 % (0.0-5.0); HEMATOCRIT. 36.7 % (36.0-48.0); HEMOGLOBIN. 12.0 g/dL (12.0-16.0); LYMPHOCYTES % 24.5 % (20.0-50.0); MEAN PLATELET VOLUME 9.5 fl (7.4-10.4); MONOCYTES % 10.8 % (2.0-8.0); NEUTROPHILS % 63.9 % (40.0-76.0); PLATELET 113 x1000/uL (130-400); RED BLOOD CELL COUNT 4.50 mill/uL (4.2-5.4); RED CELL DISTRIBUTION WIDTH 16.1 % (11.6-14.6)
[2025-05-12 18:19] LABS: TRIGLYCERIDE 159.0 mg/dL (0-150); UREA NITROGEN BLOOD 18.0 mg/dL (9-23)
[2025-05-12 18:20] LABS: LDL CHOLESTEROL 102.0 mg/dL (5-100)
[2025-05-12 18:27] LABS: T4 FREE 1.21 ng/dL (0.89-1.76)
[2025-05-12 18:46] LABS: CREATININE 1.5 mg/dL (0.6-1.0)
[2025-05-12] MEDS ORDERED: HYDROXYZINE 25MG TABLET PO PRN (20:00)
[2025-05-12] MEDS ORDERED: CEPH500T PO (20:43)
[2025-05-12] MEDS ORDERED: PREGABALIN 100 MG PO SCH (21:00)
[2025-05-12] MEDS ORDERED: PREGABALIN 50 MG CAPSULE PO SCH (21:00)
[2025-05-12] MEDS ORDERED: HYDROXYZINE HCL MT SCH (21:00)
[2025-05-12] MEDS ORDERED: APIXABAN 5 MG TABLET PO SCH (21:00)
[2025-05-12] MEDS ORDERED: ATORVASTATIN CALCIUM 10MG TABLET PO SCH (21:00)
[2025-05-12] MEDS: ATORVASTATIN CALCIUM 40MG TABLET PO SCH (21:39)
[2025-05-12] MEDS: HYDROXYZINE 25MG TABLET PO SCH (21:40)
[2025-05-13] VITALS (13 sets, daily range): BP systolic 106–152; BP diastolic 58–117; PULSE 85–102; RESP 17–27; TEMP 36.1–36.7; O2SAT 88–100
[2025-05-13 07:42] LABS: BASOPHILS % 0.2 % (0.0-2.0); EOSINOPHILS % 0.9 % (0.0-5.0); HEMATOCRIT. 37.7 % (36.0-48.0); HEMOGLOBIN. 12.1 g/dL (12.0-16.0); LYMPHOCYTES % 28.2 % (20.0-50.0); MEAN PLATELET VOLUME 9.3 fl (7.4-10.4); MONOCYTES % 9.5 % (2.0-8.0); NEUTROPHILS % 61.2 % (40.0-76.0); PLATELET 111 x1000/uL (130-400); RED BLOOD CELL COUNT 4.49 mill/uL (4.2-5.4); RED CELL DISTRIBUTION WIDTH 16.8 % (11.6-14.6)
[2025-05-13] MEDS: ASPIRIN 81MG TABLET PO SCH (08:21)
[2025-05-13] MEDS: LISINOPRIL 40MG TABLET PO SCH (08:23)
[2025-05-13 08:30] LABS: CREATININE 1.9 mg/dL (0.6-1.0); UREA NITROGEN BLOOD 18 mg/dL (9-23)
[2025-05-13] MEDS: FLUOXETINE HCL 20MG CAPSULE PO SCH (09:00)
[2025-05-13] MEDS ORDERED: PANTOPRAZOLE SODIUM 40 MG/VIAL IV SCH (09:00)
[2025-05-13] MEDS ORDERED: MEDICATION NOT ON FORMULARY EA (Fluoxetine Hcl 40 MG) PO SCH (09:00)
[2025-05-13] MEDS: MAGNESIUM 4 G PREMIX 100 ML IV SCH (10:55)
[2025-05-13] MEDS: LORAZEPAM 2MG/ML UD SYRINGE IV PRN (10:55)
== END 2025-05-13 23:00 | disposition short-term general hospital (02) | DRG 309 ==
LOC: ER 19:51 → 5EST 05-12 01:23 → EDBEDREQTM 05-12 01:29 → EDBEDREQSVC 05-12 01:29 → EDBEDREQ 05-12 01:29 → ENRESERV 05-12 03:31
PROVIDERS: ADMIT Internal Medicine; ATTEND Internal Medicine
DX: I48.0 Paroxysmal atrial fibrillation (principal); E11.52 Type 2 diabetes mellitus with diabetic peripheral angiopathy with gangrene; F10.239 Alcohol dependence with withdrawal, unspecified; Z68.41 Body mass index [BMI] 40.0-44.9, adult; L97.928 Non-pressure chronic ulcer of unspecified part of left lower leg with other specified severity; E87.6 Hypokalemia; E83.42 Hypomagnesemia; R16.0 Hepatomegaly, not elsewhere classified; E66.01 Morbid (severe) obesity due to excess calories; I10 Essential (primary) hypertension; E11.40 Type 2 diabetes mellitus with diabetic neuropathy, unspecified; E11.621 Type 2 diabetes mellitus with foot ulcer; E78.00 Pure hypercholesterolemia, unspecified; Y90.0 Blood alcohol level of less than 20 mg/100 ml; F41.9 Anxiety disorder, unspecified; M10.9 Gout, unspecified; Z87.440 Personal history of urinary (tract) infections; Z90.710 Acquired absence of both cervix and uterus; Z91.018 Allergy to other foods; Z79.899 Other long term (current) drug therapy
CPT/HCPCS: 36415; 71045; 74176; 80048; 80061; 80076; 80305; 80320; 81003; 82962; 83036; 83735; 84439; 84443; 84484; 84702; 84703; 85025; 86705; 87077; 87186; 87340; 93005; 96361; 96365; 96375; 99291; A4606; J1815; J2060; J2405; J2470; J2765; J3411; J3475; J3490; J7030; J7070; Q0163; G0480